=== PATIENT | female | born 1985 | race African-American/Black ===

== ENCOUNTER 2018-08-22 01:31 | Inpatient (IN) ==
[2018-08-22 02:40] LABS: UR AMPHETAMINES QUAL NONE DETECTED (NONE DETECT); UR BARBITUATES QUAL NONE DETECTED (NONE DETECT); UR BENZODIAZEPIN QUAL NONE DETECTED (NONE DETECT); UR CANNABINOIDS QUAL PRESUMPTIVE POSITIVE (NONE DETECT); UR COCAINE QUAL NONE DETECTED (NONE DETECT); UR METHADONE QUAL NONE DETECTED (NONE DETECT); UR METHAMPHETAMINE QUAL NONE DETECTED (NONE DETECT); UR OPIATES QUAL PRESUMPTIVE POSITIVE (NONE DETECT); UR OXYCODONE QUAL NONE DETECTED (NONE DETECT); UR PCP QUAL NONE DETECTED (NONE DETECT); UR PROPOXYPHENE QUAL NONE DETECTED (NONE DETECT); UR TCA QUAL NONE DETECTED (NONE DETECT)
[2018-08-22 02:41] LABS: BASO# 0.01 X1000 (0.0-0.2); BASO% 0.1 % (0.0-0.8); HEMATOCRIT 51.3 % (37.0-47.0); HEMOGLOBIN 18.1 g/dL (12.0-16.0); IMM GRAN# 0.02 X1000 (0.0-0.04); IMM GRAN% 0.2 % (0.0-0.5); LYMPH% 4.7 % (20.5-51.1); MCH 31.5 PG (27-31); MCHC 35.3 g/dL (33-37); MCV 89.2 FL (81-99); MONO% 7.1 % (1.7-9.3); MPV 8.8 FL (7.4-10.4); NEUT# 11.21 X1000 (1.4-6.5); NEUT% 87.9 % (42.2-75.2); PLT 370 X1000 (130-400); RBC 5.75 XMIL (4.2-5.4); RDW 13.1 % (11.5-14.5); WBC 12.74 X1000 (4.8-10.8)
[2018-08-22 03:11] LABS: BILIRUBIN URINE 1+ (NEGATIVE); CLARITY SLIGHTLY CLOUDY (CLEAR); COLOR AMBER; URINE BACTERIA 4+ /HFP; URINE EPITHELIAL CELLS <10 /HPF (<10); URINE RBC 20-40 /HPF (<10); URINE SOURCE CATH
[2018-08-22 03:12] LABS: BLOOD URINE 4+ (NEGATIVE); KETONE URINE 1+(Small) mg/dL (NEGATIVE); LEUKOCYTES URINE 1+ (NEGATIVE); NITRITE URINE NEGATIVE (NEGATIVE); UROBILINOGEN URINE 1 mg/dL
[2018-08-22 03:13] LABS: ALBUMIN 6.9 g/dL (3.5-5.0); CALCIUM 10.7 mg/dL (8.8-10.2); CREATININE 4.9 mg/dL (0.5-0.9); POTASSIUM 4.6 mmol/L (3.5-5.1); TOTAL BILIRUBIN 0.5 mg/dL (0.20-1.00)
[2018-08-22 03:36] LABS: CK INDEX 0.5 (0.0-2.5); CK-MB 3.79 ng/mL (0.0-5.0)
[2018-08-22] MEDS ORDERED: NS 1,000 ML IV ONE ×2 (03:45→06:00)
[2018-08-22] MEDS ORDERED: ZOFRAN IV ONE (03:45)
--- NOTE | 2018-08-22 06:19 | PROVIDER DOCUMENTATION ---
This chart was entered by Pauly Liu Scribe, acting as scribe for Aurora Sheehan MD. HPI-General Adult - General Chief Complaint: N/V/D Stated Complaint: N/V WITH ABD PAIN Time Seen by Provider: 08/22/18 01:33 Source: patient Allergies/Adverse Reactions: Patient Allergies Allergy/AdvReac Type Severity Reaction Status Date / Time No Known Allergies Allergy Verified 07/19/17 08:34 Home Medications: Home Medication List Medication Instructions Recorded Confirmed Last Taken Type Hydrocodone/Acetaminophen [[place] 1 tab PO BID 03/12/16 07/16/17 07/13/17 History 7.5-325 Tablet] Clonazepam 1 tab PO HS 07/14/17 07/16/17 07/13/17 History Promethazine [Phenergan] 25 mg PO Q6H PRN PRN #20 tab 07/14/17 07/16/17 Unknown Rx Promethazine [Phenergan] 25 mg PO Q6H PRN PRN #20 tab 07/16/17 Unknown Rx Promethazine [Phenergan] 25 mg ID Q6H PRN PRN #20 supp 07/16/17 Unknown Rx Metoclopramide HCl [Reglan] 5 mg PO Q6HR PRN #12 tab 07/19/17 Unknown Rx Omeprazole [Prilosec] 20 mg PO DAILY #21 cap 07/19/17 Unknown Rx - History of Present Illness -Gen Adult Nature of Presenting Problems: 33 yof c/o pt arrived ems. pt states she's had cp, abd pain and vomiting for 4 days. pt states she smoked marijuana, took norcos and ambien as needed when pain started. pt is a smoker and drinks alcohol. ems states pt acting erratic and they had trouble getting her downstairs to ambulance. Review of Systems - Adult - REVIEW OF SYSTEMS - ADULT Constitutional: reports: no symptoms reported Eyes: reports: no symptoms reported Ears, Nose, Mouth & Throat: reports: no symptoms reported Cardiovascular: reports: see HPI, chest pain. denies: heart murmur, irregular heart rate, orthopnea Respiratory: reports: no symptoms reported Gastrointestinal: reports: see HPI, abdominal pain, vomiting. denies: diarrhea, difficulty swallowing, nausea, rectal bleeding Genitourinary: reports: no symptoms reported Musculoskeletal: reports: no symptoms reported Integumentary: reports: no symptoms reported Neurological: reports: no symptoms reported. denies: dizziness/vertigo, headache/migraines, loss of balance, numbness Psychiatric: reports: see HPI, other (pt took ambien, norcos and smoked marijuana as needed for pain.). denies: depression, emotional problems, insomnia, panic attacks Endocrine: reports: no symptoms reported Hematologic/Lymphatic: reports: no symptoms reported Allergic/Immunologic: reports: no symptoms reported All Other Systems: Reviewed and Negative Past History - Adult - PAST MEDICAL HISTORY-ADULT Review of Records: reports: Old Records Reviewed, Nursing Assessment Review, Medications Reviewed, Social history reviewed & non-contributory. Major Childhood Illnesses: reports: denies history Cardiovascular: reports: denies history Respiratory: reports: denies history Gastrointestinal: reports: denies history Obstetrical/Gynecological: reports: denies history Genitourinary: reports: denies history Musculoskeletal: reports: chronic pain, intervertebral disc disease Neurological: reports: denies history Endocrine/Immune: reports: denies history Other Conditions: reports: denies history - PRIOR SURGERIES/PROCEDURES Surgical/Procedure History: reports: reviewed, not pertinent - PRIOR HOSPITALIZATIONS Prior Hospitalizations: reports: other - IMMUNIZATION STATUS Childhood Immunizations: UTD Flu Vaccine: See Nurse Assessment - FAMILY HISTORY Family History: reviewed, not pertinent - SOCIAL HISTORY Smoking: cigarettes, greater than 1 pack/day Provider spent 3-5 mins advising pt. on dangers of tobacco.: Discussed manners to quit use, and f/u contacts for add'l counseling. Substance Use: alcohol, marijuana Alcohol Use Frequency: every day Physical Exam-General - PHYSICAL EXAM-ADULT Initial Vital Signs Reviewed: Yes - CONSTITUTIONAL General Appearance: alert, mild distress, thin, anxious, other (pt acting very erratic, moving around making it difficult to do exam.). negative: cachetic, slow to respond, obtunded, combative - EYES Eyes: PERRL/EOMI, pink conjunctivae - HEAD, EARS, NOSE, MOUTH & THROAT HENMT: normocephalic/atraumatic, moist mucous membranes, normal ENT inspection - NECK Neck: non-tender, full range of motion, supple, normal inspection - RESPIRATORY Respiratory: chest non-tender, lungs clear, normal breath sounds - CARDIOVASCULAR Cardiovascular: normal peripheral pulses, regular rate, rhythm, no edema, no gallop, no JVD, no murmur. negative: JVD, bradycardia, tachycardia, irregularly irregular, PMI displaced laterally - GASTROINTESTINAL (ABDOMEN) Abdominal Exam: normal bowel sounds, soft, no organomegaly, no pulsatile mass, tenderness (generalized abd). 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 negative: normal mood/affect, normal thought content, normal thought process, oriented x 3, depressed affect, tearful Progress - PLAN OF CARE/RESULTS Progress/Plan/Lab Results: Vital Signs - 8 hr 08/22/18 01:35 Temperature 99.7 F H Pulse Rate 146 H Respiratory Rate 22 Blood Pressure 133/91 O2 Sat by Pulse Oximetry 95 labs and imaging reviewed. Pt has acute renal failure. CT abd and pelvis is negative. Pt was started on IVF's and she ripped her line so it was held. d/w Dr Page, will admit for further management. Result Diagrams: 08/22/18 02:01 08/22/18 02:01 - CONSULTS/PCP/HOSPITALIST Notification #1 *Consult/PCP/Hospitalist*: Dr Page [facility] Time Discussed: 05:05 Consult Disposition: Admit Departure - Departure Date of Disposition Decision: 08/22/18 Time of Disposition Decision: 05:10 DIAGNOSIS: Acute renal failure, Hypernatremia, Abdominal pain Disposition: ADMITTED INPATIENT 09 Certified Medical Emergency: Emergent Condition: Stable Referrals and Follow-Ups: None,PCP [Primary Care Provider] - - Critical Care Note This patient required my direct & personal management of CC.: No Attestation - Physician/ CHE Attestation Patient care was provided by Advanced Practice Provider:: No The physician spent face to face time with patient:: Yes Advanced Practice Provider documentation review:: Supervising physician onsite and consulted in the evaluation and care of this patient. The physician did have a face to face encounter with the patient. This chart was documented by the indicated scribe, (Pauly Liu Scribe) and accurately reflects the services I performed and decisions made by me, Aurora Sheehan MD, as attested by the provider's signature.
[2018-08-22] MEDS ORDERED: G.I. COCKTAIL PO ONE ×2 (08:12→14:29)
[2018-08-22] MEDS ORDERED: NS 2,000 ML IV ONE (08:21)
[2018-08-22] MEDS ORDERED: SODIUM CHLORIDE 0.9% INJ SCH ×2 (08:30→16:00)
[2018-08-22] MEDS ORDERED: PROTONIX IV SCH (08:30)
[2018-08-22] MEDS: ZOFRAN IV PRN ×3 (08:47→19:21)
[2018-08-22] MEDS: MYCELEX TROCHE PO SCH ×5 (08:48→20:50)
[2018-08-22 09:08] LABS: HEMATOCRIT 47.5 % (37.0-47.0); MCH 31.8 PG (27-31); MCHC 35.8 g/dL (33-37); RBC 5.34 XMIL (4.2-5.4); RDW 12.9 % (11.5-14.5); WBC 16.7 X1000 (4.8-10.8)
--- NOTE | 2018-08-22 09:09 | Diag Imaging Result Doc PS360 ---
EXAM: CT ABDOMEN/PELVIS W/O CONTRAST HISTORY: abd pain and hematuria TECHNIQUE: Routine stone search CT without contrast. COMPARISON: 07/16/2017 FINDINGS: Pulmonary interpretation was given by [facility] tel[facility]. Small hepatic and right renal cysts are unchanged. No calcified gallstones. There are splenic granulomata. The remaining unenhanced solid visceral organs are unremarkable. No hydronephrosis or urolithiasis. No evidence for appendicitis. No bowel distention or free air. There is a an unusually large amount air within the urinary bladder. Correlate clinically for recent instrumentation. There is a small amount of free fluid within the pelvis. IMPRESSION: Large amount of air in the urinary bladder. Correlate clinically for recent instrumentation. No urolithiasis or hydronephrosis. This exam was performed using automated exposure control, adjustment of mA or kV according to patient size, and/or use of iterative reconstruction technique. Electronically signed by Susan Parnell 08/22/2018 9:07 AM
[2018-08-22 09:15] LABS: MAGNESIUM 2.8 mg/dL (1.5-2.7); PHOSPHORUS 7.8 mg/dL (2.7-4.5)
[2018-08-22 09:27] LABS: ALBUMIN 5.3 g/dL (3.5-5.0); CALCIUM 9.4 mg/dL (8.8-10.2); CREATININE 5.3 mg/dL (0.5-0.9); POTASSIUM 4.6 mmol/L (3.5-5.1); TOTAL BILIRUBIN 0.6 mg/dL (0.20-1.00); TOTAL PROTEIN 9.4 g/dL (6.3-8.3)
[2018-08-22 09:28] LABS: INR 1.01; PROTIME 13.8 Seconds (11.0-16.0)
[2018-08-22 09:29] LABS: PTT 29.5 Seconds (22.3-41.8)
--- NOTE | 2018-08-22 09:45 | EKG Report ---
Test Performed on : 08/22/2018 08:15:40 AM Test Reason : Chest pain Blood Pressure : / mmHG Vent. Rate : 130 BPM Atrial Rate : 130 BPM P-R Int : 122 ms QRS Dur : 078 ms QT Int : 302 ms P-R-T Axes : 081 071 075 degrees QTc Int : 444 ms Sinus tachycardia. Otherwise normal ECG When compared with ECG of 14-JUL-2017 12:39, Vent. rate has increased BY 69 BPM Non-specific change in ST segment in Inferior leads Unconfirmed Result
[2018-08-22] MEDS ORDERED: M.V.I.-12 10 ML, FOLIC ACID 1 MG, MAGNESIUM SULFATE 1 GM, THIAMINE 100 MG in NS 1,000 ML IV SCH (10:00)
[2018-08-22] MEDS ORDERED: THIAMINE IV SCH (10:00)
[2018-08-22] MEDS ORDERED: FOLIC ACID IV SCH (10:00)
[2018-08-22] MEDS ORDERED: NS IV SCH (10:00)
[2018-08-22] MEDS ORDERED: M V I IV SCH (10:00)
--- NOTE | 2018-08-22 10:23 | Diag Imaging Result Doc PS360 ---
EXAM: CHEST-PORTABLE HISTORY: Sepsis Protocol TECHNIQUE: Single view of the chest was performed portably. COMPARISON: 07/19/2017 FINDINGS: The cardiomediastinal silhouette is within normal limits. The pulmonary vasculature is not congested. No infiltrate, effusion, or pneumothorax is appreciated. IMPRESSION: No acute cardiopulmonary abnormality is identified. Electronically signed by Susan Parnell 08/22/2018 10:20 AM
[2018-08-22 11:49] LABS: BILIRUBIN URINE NEGATIVE (NEGATIVE); BLOOD URINE 4+ (NEGATIVE); CLARITY SL. CLOUDY (CLEAR); COLOR YELLOW; KETONE URINE 1+(Small) mg/dL (NEGATIVE); LEUKOCYTES URINE TRACE (NEGATIVE); NITRITE URINE NEGATIVE (NEGATIVE); PROTEIN URINE 2+(100 mg/dL) mg/dL (NEGATIVE); SP GRAVITY URINE 1.025; UROBILINOGEN URINE NORMAL
[2018-08-22 11:50] LABS: URINE EPITHELIAL CELLS <10 /HPF (<10); URINE RBC TNTC /HPF (<10); URINE SOURCE CATH; URINE WBC <10 /HPF (<10)
[2018-08-22] MEDS: CARAFATE PO SCH ×2 (11:51→15:47)
[2018-08-22 11:53] LABS: UR PROT RANDOM 149.7 mg/dL
[2018-08-22 11:55] LABS: UR CREAT RANDOM 342.7 mg/dL (11-20)
--- NOTE | 2018-08-22 11:56 | Diag Imaging Result Doc PS360 ---
EXAM: US RENAL 2 (RETROPER) COMPLETE 08/22/2018 HISTORY: MARQUES TECHNIQUE: Renal ultrasound COMMENT: The kidneys are slightly hyperechoic. There is no evidence of hydronephrosis. There is a 1.6 cm cyst in the right kidney. The urinary bladder is not visible. The right kidney is 10.1 x 5.5 x 4.3 cm the left is 11.4 x 4.5 x 4.8 cm. IMPRESSION: No evidence of obstructive uropathy. The possibility of medical renal disease cannot be excluded. Electronically signed by Aman Corea 08/22/2018 11:54 AM
[2018-08-22] MEDS ORDERED: NS 1,000 ML IV SCH ×2 (12:15→18:14)
[2018-08-22] MEDS ORDERED: MORPHINE IV ONE (14:29)
[2018-08-22 15:16] LABS: ALBUMIN 4.4 g/dL (3.5-5.0); CREATININE 3.3 mg/dL (0.5-0.9); POTASSIUM 4.4 mmol/L (3.5-5.1)
[2018-08-22] MEDS: PROTONIX 80 MG in NS 80 ML IV SCH (16:08)
[2018-08-22] MEDS: SODIUM BICARBONATE 8.4% 150 MEQ in D5W 1,000 ML IV SCH (18:41)
[2018-08-22 19:06] LABS: ALBUMIN 4.5 g/dL (3.5-5.0); CALCIUM 8.2 mg/dL (8.8-10.2); CREATININE 2.5 mg/dL (0.5-0.9); PHOSPHORUS 4.2 mg/dL (2.7-4.5); POTASSIUM 4.7 mmol/L (3.5-5.1)
--- NOTE | 2018-08-22 19:15 | HISTORY AND PHYSICAL ---
CHIEF COMPLAINT: Abdominal pain, nausea, vomiting. HISTORY OF PRESENT ILLNESS: This is a 33-year-old female who presented to the emergency room complaining of 4 days of abdominal pain and vomiting. She denies a prior history. She states that she had a sudden onset that started and just has grown into intensity over the last 4 days. She states that she smoked marijuana, took her scheduled [place] and Ambien although has not relieved the pain. She does drink. She drinks at least 2 shots a day and she did drink up until yesterday sometime. Getting history from the patient is quite difficult. She is noted to have a blood pressure of 149/96, with a heart rate ranging 100 to 120, respirations are 18 to 20, temperature is 97.8, room air saturations are 98 to 100 about 24 hours prior to presenting to the emergency room. CT scan of the abdomen and pelvis without contrast was performed which revealed hepatic and renal cyst and an unusually large amount of air within the bladder. She was found to be in acute renal failure having a creatinine of 4.9. She was given IV hydration, as well as Zofran and admitted for further evaluation and treatment. PAST MEDICAL HISTORY: She denies. PAST SURGICAL HISTORY: Tonsillectomy. SOCIAL HISTORY: She smokes about a pack a day. She drinks at least 2 shots of alcohol a day and she does smoke marijuana weekly, more often socially. HOME MEDICATIONS: Ambien 10 mg p.o. at bedtime. Rincon 7.5 b.i.d. REVIEW OF SYSTEMS: Discussed with patient with pertinent positives stated in the HPI. She denied any syncope, dizziness, any palpitations, any diarrhea, constipation, black or bloody vomitus or stools, any shortness of breath, cough, fever, chills, night sweats; any hematuria, dysuria, frequency, urgency. PHYSICAL EXAMINATION: GENERAL: This is a 33-year-old female who is lying in the bed, restless and agitated. VITAL SIGNS: Blood pressure 133/87 with a heart rate of 110, respirations are 18, temperature is 97.9 oral with room air saturations 95-98%. HEENT: Eyes: Pupils are equal, round, react to light. EOMs are intact. Sclerae are anicteric. Head is normocephalic, atraumatic. Mucous membranes are dry. Tongue is coated. NECK: Supple with trachea midline. CARDIOVASCULAR: Regular rate and rhythm. She is tachycardic. S1 and S2 are appreciated. She has no lower extremity edema. No murmur. Peripheral pulses are palpable x4 extremities. PULMONARY: Breath sounds are clear with no increased work of breathing noted. Chest rise and fall symmetrically with respiration. GASTROINTESTINAL: Abdomen is soft. She has generalized tenderness, especially epigastric to right upper quadrant. Bowel sounds are noted in all 4 quadrants. NEUROLOGIC: She is alert. She is anxious. SKIN: Warm and dry with poor turgor. LABS: WBC is 12.7 with hemoglobin 18.1, hematocrit 51.3, and platelets of 370. Sodium is 158, potassium 4.6, BUN 53, creatinine 4.9 with a glucose of 184. AST is 33, ALT 41. She does have a CPK of 733. Blood cultures and urine cultures are pending. 1. Chest x-ray reveals no acute cardiopulmonary abnormality identified. 2. CT of the abdomen and pelvis reveals a large amount of air in the urinary bladder. Clinically correlate for recent instrumentation. No urolithiasis or hydronephrosis. ASSESSMENT AND PLAN: 1. Dehydration. 2. Acute kidney injury secondary to #1. 3. Rhabdomyolysis. 4. Leukocytosis. 5. Electrolyte imbalance with hypernatremia. 6. Hypernatremia. 7. Elevated liver function tests. PLAN: The patient is currently on medical-surgical floor. We will transfer her to ICU for close monitoring. She is profoundly dehydrated. We will give a 3 L bolus. As the patient does have a history of daily alcohol use, we will hang a banana bag as 1 of our liters. We will recheck a renal profile every 4 hours. We will recheck CPK. Will try a GI cocktail for pain. We will give Protonix 40 mg IV q.12 hours. We will check a renal ultrasound. Obtain urine electrolytes. We will check a Mag and phosphorus. We will monitor for any signs of alcohol withdrawal. We will start Carafate a.c. and at bedtime. As her mouth is coated, we will start Mycelex troches. Further treatments pending hospital course. Dictated by WILIAM Shen for Robbie Page MD cc: WILIAM Shen MD
[2018-08-22] MEDS: CARAFATE LIQUID PO SCH (19:20)
[2018-08-22] MEDS: NORCO-7.5 PO PRN (20:50)
[2018-08-22] MEDS: D5 1/2 NS 1,000 ML IV SCH (20:53)
[2018-08-22 22:46] LABS: ALBUMIN 4.2 g/dL (3.5-5.0); CREATININE 1.8 mg/dL (0.5-0.9); PHOSPHORUS 3.6 mg/dL (2.7-4.5); POTASSIUM 4.6 mmol/L (3.5-5.1)
--- NOTE | 2018-08-23 01:24 | HISTORY AND PHYSICAL ---
ADDENDUM: Patient seen and examined by myself. Full note dictated and discussed with nurse practitioner. The patient has been having coffee-grounds emesis with nausea, vomiting, abdominal pain. States she has been smoking marijuana. We will admit her to the hospital. Currently, there is no bed at [facility]. She is in acute renal failure and rhabdomyolysis. We will place her on IV fluids, a Protonix drip, and will follow. cc: Robbie Page MD
[2018-08-23] MEDS: PROTONIX 80 MG in NS 80 ML IV SCH ×3 (01:26→21:32)
[2018-08-23] MEDS: DILAUDID IV PRN ×4 (01:37→20:08)
[2018-08-23] MEDS: CARAFATE LIQUID PO SCH ×6 (02:00→20:09)
[2018-08-23 08:42] LABS: CALCIUM 8.1 mg/dL (8.8-10.2); CREATININE 1.1 mg/dL (0.5-0.9); MAGNESIUM 3.1 mg/dL (1.5-2.7); POTASSIUM 4.8 mmol/L (3.5-5.1); TOTAL BILIRUBIN 0.5 mg/dL (0.20-1.00); TOTAL PROTEIN 6.8 g/dL (6.3-8.3)
[2018-08-23] MEDS ORDERED: DIFLUCAN PO SCH (09:00)
--- NOTE | 2018-08-23 09:02 | EKG Report ---
Test Performed on : 08/22/2018 2:21:43 PM Test Reason : ER Blood Pressure : / mmHG Vent. Rate : 072 BPM Atrial Rate : 072 BPM P-R Int : 110 ms QRS Dur : 090 ms QT Int : 370 ms P-R-T Axes : 090 083 081 degrees QTc Int : 405 ms Sinus rhythm. with sinus arrhythmia. with short MN Otherwise normal ECG When compared with ECG of 22-AUG-2018 08:15, (Unconfirmed) Vent. rate has decreased BY 58 BPM Unconfirmed Result
[2018-08-23] MEDS: MYCELEX TROCHE PO SCH ×5 (09:30→21:31)
[2018-08-23] MEDS: SODIUM BICARBONATE 8.4% 150 MEQ in D5W 1,000 ML IV SCH (09:31)
[2018-08-23 09:37] LABS: HEMATOCRIT 38.6 % (37.0-47.0); HEMOGLOBIN 13.3 g/dL (12.0-16.0); MCH 31.8 PG (27-31); MCHC 34.5 g/dL (33-37); MCV 92.3 FL (81-99); MPV 8.9 FL (7.4-10.4); RBC 4.18 XMIL (4.2-5.4); RDW 13.3 % (11.5-14.5); WBC 17.1 X1000 (4.8-10.8)
[2018-08-23] MEDS: D5 1/2 NS 1,000 ML IV SCH (10:01)
[2018-08-23] MEDS: PHENERGAN IV PRN ×3 (10:12→20:17)
[2018-08-23] MEDS ORDERED: D5W 1,000 ML IV SCH ×2 (12:30→21:15)
[2018-08-23 12:36] LABS: HEMOGLOBIN A1C 5.3 % (4.8-6.0)
[2018-08-23] MEDS ORDERED: DIFLUCAN 200 MG/NS 100 ML IV SCH (12:45)
[2018-08-23] MEDS: SODIUM CHLORIDE 0.9% INJ PRN (14:40)
[2018-08-23] MEDS ORDERED: HUMALOG (PARKWAY) SUBQ SCH (16:00)
[2018-08-23 20:48] LABS: ESTIMATED GFR > 60
[2018-08-23 20:55] LABS: AGAP 9; BUN 27 mg/dL (8-22); CHLORIDE 123 mmol/L (98-107); COSMO 324; GLUCOSE 140 mg/dL (70-104); POTASSIUM 4.8 mmol/L (3.5-5.1); SODIUM 160 mmol/L (136-145); TCO2 28 mmol/L (25-35)
[2018-08-23] MEDS: HUMALOG SUBQ SCH (21:06)
[2018-08-23] MEDS ORDERED: SODIUM BICARBONATE 8.4% 150 MEQ in D5W 1,000 ML IV SCH (22:00)
[2018-08-23 23:27] LABS: AGAP 6; BUN 24 mg/dL (8-22); CALCIUM 8.4 mg/dL (8.8-10.2); CHLORIDE 117 mmol/L (98-107); COSMO 314; CREATININE 0.9 mg/dL (0.5-0.9); ESTIMATED GFR > 60; GLUCOSE 143 mg/dL (70-104); POTASSIUM 4.8 mmol/L (3.5-5.1); SODIUM 155 mmol/L (136-145); TCO2 32 mmol/L (25-35)
--- NOTE | 2018-08-23 23:27 | PROGRESS NOTE ---
DATE: 08/23/2018 SUBJECTIVE: The patient notes she is still having lots of throat pain, difficulty swallowing, but does note that she actually feels some moisture in her mouth now, which is apparently a new finding. OBJECTIVE: Vital signs reviewed. She is awake, alert. She is in no respiratory distress but is somewhat ill-appearing. HEENT: Normocephalic. Neck supple. CV: Regular rate. Chest clear, nonlabored. Abdomen soft, nondistended. Extremities: Moves all extremities. ASSESSMENT AND PLAN: 1. Dehydration, appears improved. 2. Acute kidney injury, continues to improve. 3. Rhabdomyolysis, stable. 4. Leukocytosis, stable. 5. Hypernatremia. Sodium remains 160. We will continue with D5 half normal as well as sodium bicarbonate. 6. Presumed candidal esophagitis. We will continue Diflucan. Continue to encourage p.o. We will transfer the patient to [facility] for an esophagogastroduodenoscopy as well as Oncology. cc: Robbie Page MD
[2018-08-24] MEDS: PHENERGAN IV PRN ×3 (02:29→19:30)
[2018-08-24] MEDS: DILAUDID IV PRN ×4 (02:29→22:12)
[2018-08-24] MEDS: SODIUM CHLORIDE 0.9% INJ PRN ×2 (02:29→06:58)
[2018-08-24] MEDS: CARAFATE LIQUID PO SCH ×4 (02:30→19:55)
[2018-08-24] MEDS ORDERED: D5W 1,000 ML IV SCH ×3 (03:25→06:36)
[2018-08-24 05:52] LABS: BASO# 0.01 X1000 (0.0-0.2); BASO% 0.1 % (0.0-0.8); EOS# 0.04 X1000 (0.0-0.7); EOS% 0.4 % (0.0-10.0); HEMATOCRIT 38.1 % (37.0-47.0); HEMOGLOBIN 12.6 g/dL (12.0-16.0); IMM GRAN# 0.03 X1000 (0.0-0.04); IMM GRAN% 0.3 % (0.0-0.5); LYMPH# 1.24 X1000 (1.2-3.4); LYMPH% 12.3 % (20.5-51.1); MCH 31.7 PG (27-31); MCHC 33.1 g/dL (33-37); MCV 95.7 FL (81-99); MONO# 0.46 X1000 (0.11-0.59); MONO% 4.5 % (1.7-9.3); MPV 9.5 FL (7.4-10.4); NEUT# 8.34 X1000 (1.4-6.5); NEUT% 82.4 % (42.2-75.2); PLT 172 X1000 (130-400); RBC 3.98 XMIL (4.2-5.4); RDW 13.3 % (11.5-14.5); WBC 10.12 X1000 (4.8-10.8)
[2018-08-24 06:19] LABS: AGAP 6; ALB/GLOB RATIO 1.4; ALBUMIN 3.6 g/dL (3.5-5.0); ALKALINE PHOSPHATASE 39 U/L (32-104); BUN 20 mg/dL (8-22); CALCIUM 8.6 mg/dL (8.8-10.2); CHLORIDE 116 mmol/L (98-107); COSMO 304; CREATININE 0.9 mg/dL (0.5-0.9); ESTIMATED GFR > 60; GLUCOSE 152 mg/dL (70-104); GOT 47 U/L (10-30); GPT 32 U/L (10-36); MAGNESIUM 2.7 mg/dL (1.5-2.7); POTASSIUM 4.6 mmol/L (3.5-5.1); SODIUM 150 mmol/L (136-145); TCO2 28 mmol/L (25-35); TOTAL BILIRUBIN 0.57 mg/dL (0.20-1.00); TOTAL PROTEIN 6.1 g/dL (6.3-8.3)
[2018-08-24] MEDS: HUMALOG SUBQ SCH ×4 (06:40→21:12)
[2018-08-24] MEDS: PROTONIX 80 MG in NS 80 ML IV SCH ×2 (06:59→16:57)
[2018-08-24] MEDS ORDERED: NS 1,000 ML IV SCH (08:15)
[2018-08-24] MEDS: MYCELEX TROCHE PO SCH ×6 (08:23→21:54)
--- NOTE | 2018-08-24 09:10 | PROGRESS NOTE ---
DATE: 08/24/2018 SUBJECTIVE: The patient seems to be doing a little bit better but she is still complaining of abdominal pain, nausea and vomiting. She just received pain medication for her abdominal pain and nausea medication as well. Her sodium level is better, but it looks like decreased around 10 point in less than 12 hours, so I will stop the D5W and I will put this patient on normal saline at a low rate. Her kidney function improved. The CK level is trending down. I will continue to monitor. OBJECTIVE: Vital Signs: Temperature 98.3 degrees, pulse 57, respiratory rate 18, blood pressure 133/98. Oxygen saturation 100% on room air. HEENT: Head normocephalic, no trauma, PERRLA. Neck: Supple. No JVD. No masses. Central trachea. Chest: Clear to auscultation. Some crepitus at the bases. Abdomen: Soft generalized tenderness to palpation especially at the level of the periumbilical area and epigastric area. Extremities: No edema, no clubbing, no cyanosis. Neurological: The patient is alert. She is oriented x3. No focal neurological deficits. LABORATORY: WBC 10.1, hemoglobin 12.6, hematocrit 38.1, platelets 172,000 sodium 150, potassium 4.6, chloride 116, bicarbonate 28, BUN 20, creatinine 0.9, glucose 152, calcium 8.6, magnesium 2.7 , AST 47, ALT 32 alkaline phosphatase 39. CK 1872 albumin is 3.6. ASSESSMENT AND PLAN: 1. Intractable nausea, vomiting, abdominal pain. This patient has been having now severe nausea, vomiting and abdominal pain for the past 5 to 6 days. She has been able to keep anything down. She was admitted with severe dehydration and apparently she has been having coffee- grounds emesis. Gastroenterology Department has been consulted. Probably this patient has severe gastritis versus esophagitis. 2. Upper GI bleed. This patient has been having coffee ground emesis. Gastroenterology Department has been consulted. We will continue to monitor. 3. Hypernatremia, the sodium level decreased from 160 to 150 in less than 12 hours, I will stop the D5W and I will put this patient on normal saline at a low rate. I will recheck the blood sodium every 4 hours. 4. Rhabdomyolysis, CK level is trending down. We will continue to monitor and IV fluids. 5. Acute kidney injury, resolved. 6. Leukocytosis, resolved. 7. Drug abuse. It looks like this patient has been doing marijuana. As per the patient she does that occasionally. She has been highly advised against drug use. I will continue with daily cessation education. 8. Tobacco abuse. Also this patient has been highly advised against tobacco use. I will continue with daily cessation education as well. cc: Beto Chery MD
[2018-08-24] MEDS ORDERED: ROBINUL ONE (10:11)
[2018-08-24] MEDS ORDERED: XYLOCAINE-MPF 2% ONE (10:11)
[2018-08-24] MEDS ORDERED: FENTANYL ONE (10:12)
[2018-08-24] MEDS ORDERED: DIPRIVAN 1% ONE (10:12)
[2018-08-24] MEDS ORDERED: ZOFRAN ONE (10:14)
[2018-08-24] MEDS ORDERED: DIFLUCAN 200 MG/NS 100 ML IV SCH (12:00)
--- NOTE | 2018-08-24 12:46 | OPERATIVE NOTE ---
PROCEDURE DATE : 08/24/2018 EXAM: Upper gastrointestinal endoscopy. PROVIDER: Villa Valadez MD INDICATION: Intractable nausea and vomiting, coffee-ground emesis. MEDICATIONS: Monitored anesthesia care. DESCRIPTION OF PROCEDURE: Prior to the procedure, history and physical was performed. The patient's medications and allergies were reviewed. The patient's tolerance to previous anesthesia was also reviewed. The risks and benefits of the procedure and sedation options and risks were discussed with the patient. All questions were answered, and informed consent was obtained. After reviewing the risks and benefits, the patient was deemed in satisfactory condition to undergo the procedure. Then a scope was passed under direct visualization. Throughout the procedure, the patient's blood pressure, pulse and oxygen saturation were monitored continuously. The endoscope was introduced in the mouth and advanced to the second portion of the duodenum. The upper GI endoscopy was accomplished without difficulty. The patient tolerated the procedure well. COMPLICATIONS: No immediate complications. ESTIMATED BLOOD LOSS: Minimal. FINDINGS: The esophagus was normal. Z line was regular at 38 cm from the incisors. Stomach showed diffuse moderate gastritis. Random gastric biopsies were obtained to rule out H. pylori. Retroflexion in the stomach was normal. The duodenal bulb and second portion were also normal. IMPRESSION: - Gastritis, biopsied. - Otherwise, exam was normal. - No etiology of the patient's nausea and vomiting was found on EGD. Cyclic vomiting syndrome suspected RECOMMENDATIONS: - Await pathology results. - Clear liquid diet as tolerated. - Continue PPI twice daily. - Continue antiemetics as needed. 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 Please call with any questions or concerns. MTDD
--- NOTE | 2018-08-24 14:21 | GASTROENTEROLOGY CONSULTATION ---
DATE: 08/24/2018 REASON FOR CONSULTATION: Intractable nausea and vomiting, coffee-ground emesis, abdominal pain. HISTORY OF PRESENT ILLNESS: Ms. Marla Bolton is a 33-year-old woman with past medical history of chronic back pain, alcoholism, marijuana abuse, who presents with 4 days of intractable nausea and vomiting that progressed to coffee-ground emesis. The patient reports that her symptoms started with headache for which she took some Advil once. She subsequently developed intractable nausea and vomiting with dry heaves that was nonbloody and nonbilious multiple times a day. Over the last couple of days, she has noticed some dark black coffee grounds in her emesis as well as severe, diffuse abdominal pain. She does drink alcohol about 2 shots of alcohol a day as well as a few beers per week. She also smokes marijuana regularly. She says she had a similar episode about a year ago that resolve spontaneously. She has never had an EGD or colonoscopy in the past and denies any history of reflux disease. She was initially admitted at [facility] where she had a CT done there that showed hepatic and renal cysts and a large amount of air in the urinary bladder. Otherwise, no evidence of bowel obstruction or pancreatitis. Her labs at the outside hospital was notable for leukocytosis of 16.7. Heme concentration with a hemoglobin of 17.0, severe volume depletion with sodium of 162, creatinine of 5.3 and came down to 1.8 with resuscitation, and a CK of 2234. Lactate was normal at the time. While at the outside hospital, she continued to complain of nausea, vomiting and coffee ground emesis. Today, she is complaining of waves of nausea, particularly with movement and has been having some emesis with clear fluid; primarily dry heaving. She also complains of chest pain and shortness of breath. REVIEW OF SYSTEMS: As per HPI, otherwise 12 point review of systems is negative. PAST MEDICAL HISTORY: Chronic back pain, insomnia, ETOH abuse, marijuana abuse SOCIAL HISTORY: She drinks alcohol regularly. She is a half a pack per day smoker. She smokes marijuana regularly. FAMILY HISTORY: No family history of GI diseases or malignancies. MEDICATIONS: She takes [place] and Ambien, Advil as needed, rarely. ALLERGIES: No allergies to medications. PHYSICAL EXAMINATION: Vital Signs: Temperature is 97.9 degrees, heart rate is 75, respiratory rate 17, blood pressure 133/98, O2 saturation 100% on room air. General: The patient is awake, alert, in mild acute distress, appears uncomfortable, writhing in the bed. She says it is from her nausea and chest pain. HEENT: Sclerae anicteric. Moist mucous membranes. Extraocular motor intact. Neck: Supple. No JVD. No lymphadenopathy. Chest: She has hypertrophy of the pectoralis muscles bilaterally. Cardiac: Regular rate and rhythm. No murmurs. Lungs: Clear to auscultation bilaterally. Abdomen: Nondistended. No surgical scars. Bowel sounds are present. Diffuse tenderness to palpation. No rebound or guarding. Extremities: No clubbing, cyanosis, or edema. Skin: She does have some notable hirsutism with increased facial hair. Skin is warm and well perfused. Mildly diaphoretic. Gynecologic: Per report, patient is on her menses. LABORATORY DATA: White count is 10.12 from 16.7 on admission. Hemoglobin is 12.6 from 17.0 on admission, platelets of 172,000. INR is 1.01. Sodium is 150 from 162 on admission, potassium 4.6, chloride is 116, bicarbonate 28, BUN 20, creatinine 0.9 from 5.3 on admission. Glucose is 152, calcium is 8.6, phosphorus 3.6, magnesium of 2.7, total bilirubin 0.57, AST is 47, ALT is 32. CK is 1872 from 3068 on admission, total protein 6.1, albumin is 2.6. UA on 08/22 showed proteinuria, increased ketones, trace white blood cell count. Urine toxicology positive for opiates and cannabinoids. Alcohol level was negative. Blood cultures x2 no growth to date. Urine culture is negative. IMAGING: CT abdomen and pelvis without contrast on 08/01 show a large amount of air in the urinary bladder. Small hepatic and right renal cysts that are unchanged from prior. Otherwise, no other luminal findings. Chest x-ray was normal. Renal ultrasound shows no evidence of obstructive uropathy. ASSESSMENT AND PLAN: Marla Bolton is a 33-year-old woman who presents with acute episode of intractable nausea, vomiting with coffee ground emesis, abdominal pain, found to have acute kidney injury in the setting of volume depletion. Other notable findings includes hypernatremia, heme concentration and rhabdomyolysis. Her rhabdomyolysis, renal function, hypernatremia have improved with fluid resuscitation. However, she continues to complain of pain and intractable nausea and vomiting. The differential of her nausea and vomiting includes MWT, esophagitis, gastroparesis, cyclic vomiting syndrome, peptic ulcer disease, duodenitis, gastritis. She is n.p.o. and currently on PPI twice a day. We will plan for diagnostic EGD today. She is also on Carafate, Phenergan, and zofran as needed. Other issues include alcoholism, marijuana abuse, and chronic pain. Thank you for this consult. We will follow with you. Please call with any questions or concerns. [facility] HEALTHJohn
[2018-08-24] MEDS: ZOFRAN IV PRN (16:54)
[2018-08-24] MEDS: D5W 1,000 ML IV SCH (17:42)
[2018-08-24] MEDS: NORCO-7.5 PO PRN (19:55)
[2018-08-25] MEDS: CARAFATE LIQUID PO SCH ×4 (01:39→19:37)
[2018-08-25] MEDS: PROTONIX 80 MG in NS 80 ML IV SCH ×2 (03:12→13:12)
[2018-08-25] MEDS: D5W 1,000 ML IV SCH (06:07)
[2018-08-25 06:19] LABS: BASO# 0.01 X1000 (0.0-0.2); BASO% 0.2 % (0.0-0.8); EOS# 0.11 X1000 (0.0-0.7); EOS% 1.7 % (0.0-10.0); HEMATOCRIT 36.7 % (37.0-47.0); HEMOGLOBIN 12.1 g/dL (12.0-16.0); LYMPH# 1.81 X1000 (1.2-3.4); LYMPH% 27.2 % (20.5-51.1); MCH 32.2 PG (27-31); MCV 97.6 FL (81-99); MONO# 0.31 X1000 (0.11-0.59); MONO% 4.7 % (1.7-9.3); MPV 9.7 FL (7.4-10.4); NEUT# 4.41 X1000 (1.4-6.5); NEUT% 66.2 % (42.2-75.2); PLT 149 X1000 (130-400); RBC 3.76 XMIL (4.2-5.4); RDW 12.9 % (11.5-14.5); WBC 6.65 X1000 (4.8-10.8)
[2018-08-25 06:49] LABS: AGAP 6; ALB/GLOB RATIO 1.4; ALBUMIN 3.6 g/dL (3.5-5.0); ALKALINE PHOSPHATASE 48 U/L (32-104); BUN 15 mg/dL (8-22); CALCIUM 8.6 mg/dL (8.8-10.2); CHLORIDE 116 mmol/L (98-107); CK TOTAL 1112 U/L (24-173); COSMO 298; CREATININE 0.9 mg/dL (0.5-0.9); ESTIMATED GFR > 60; GLUCOSE 110 mg/dL (70-104); GOT 45 U/L (10-30); GPT 38 U/L (10-36); MAGNESIUM 2.2 mg/dL (1.5-2.7); POTASSIUM 4.2 mmol/L (3.5-5.1); SODIUM 149 mmol/L (136-145); TCO2 27 mmol/L (25-35); TOTAL BILIRUBIN 0.59 mg/dL (0.20-1.00); TOTAL PROTEIN 6.1 g/dL (6.3-8.3)
[2018-08-25] MEDS: HUMALOG SUBQ SCH ×3 (07:00→15:40)
--- NOTE | 2018-08-25 09:29 | PROGRESS NOTE ---
DATE: 08/25/2018 SUBJECTIVE: This patient is doing better today, today she is tolerating p.o., her sodium is still elevated. We will continue with D5W and checking her sodium level every 4 hours. OBJECTIVE: Vital Signs: Temperature 98.4 degrees, pulse 65, respiratory rate 18, blood pressure 111/75, oxygen saturation 100% on room air. HEENT: Head normocephalic. No trauma. PERRLA. Neck: Supple. No JVD. No masses. Central trachea. Chest: Clear to auscultation. No wheezing. No rales. Abdomen: Soft. Mild tenderness to palpation at the level of the periumbilical area and epigastric area. Extremities: No edema, no clubbing, no cyanosis. Neurological: The patient is alert and oriented x3. No focal deficits. LABORATORY DATA: WBC 6.6, hemoglobin 12.1, hematocrit 36.7, platelets 149,000. Sodium 149, potassium 4.2, chloride 116, bicarbonate 27, BUN 15, creatinine 0.9, glucose 110, calcium 8.6. AST 45, ALT 38, alkaline phosphatase 48. CK level 1112. ASSESSMENT AND PLAN: 1. Intractable nausea, vomiting and abdominal pain, resolved. She is still having some abdominal pain, but she is feeling much better. She is tolerating p.o. We will continue with same management. 2. Upper gastrointestinal bleed. Upon admission, the patient was complaining of coffee-grounds emesis, upper endoscopy was performed and showed gastritis, she has been placed on proton pump inhibitors and Carafate, she is feeling better. 3. Hypernatremia. The sodium level is trending down, today is 149. Will continue with D5W and diet. 4. Rhabdomyolysis. CK level is trending down as well. We will continue to monitor and IV fluids. 5. Acute kidney injury, resolved. 6. Leukocytosis, resolved. 7. Drug abuse. This patient has been doing marijuana. She denies any other drugs. I will continue with daily cessation education. 8. Tobacco abuse. This patient has been highly advised against tobacco use. I will continue with daily cessation education as well. cc: Beto Chery MD
--- NOTE | 2018-08-25 09:32 | PROVIDER PROGRESS NOTE ---
Progress Note SUBJECTIVE: No acute overnight events. Afebrile. No N/V/F, CP, SOB, abdominal pain. Tolerating liquids. OBJECTIVE: Last Vital Signs Temp 98.8 F 08/25/18 08:00 Pulse 80 08/25/18 08:00 Resp 16 08/25/18 08:00 BP 118/96 08/25/18 08:00 Pulse Ox 100 08/25/18 08:00 Height 5 ft 6 in Weight 145 lb GEN: awake, alert, NAD HEENT: anicteric, MMM, EOMI NECK: supple, no jvd CV: RRR, no murmurs PULM: CTAB ABD: soft NT/ND, NABS EXT: no cce NEURO: nonfocal LABS: 08/25/18 08/25/18 05:32 05:32 WBC 6.65 Hgb 12.1 Plt Count 149 Sodium 149 H Potassium 4.2 Chloride 116 H Carbon Dioxide 27 BUN 15 Creatinine 0.9 Glucose 110 H Calcium 8.6 L Magnesium 2.2 Total Bilirubin 0.59 AST 45 H ALT 38 H Alkaline Phosphatase 48 Creatine Kinase 1112 H Total Protein 6.1 L Albumin 3.6 EGD 08/24/2018 FINDINGS: The esophagus was normal. Z line was regular at 38 cm from the incisors. Stomach showed diffuse moderate gastritis. Random gastric biopsies were obtained to rule out H. pylori. Retroflexion in the stomach was normal. The duodenal bulb and second portion were also normal. A/P: Marla Bolton is a 33-year-old woman with marijuana and alcohol abuse who presents with acute episode of intractable nausea, vomiting with coffee grounds, abdominal pain, found to have acute kidney injury, rhabdomyolysis, hypovolemic hyernatremia in the setting of volume depletion. UGIB resolved. Suspect related to [place] tear not seen on EGD or gastritis. Her nausea and vomiting episode is likely from cyclic vomiting syndrome from cannabinoid hyperemesis. She says she has heard of the term before as her sister has similar symptoms periodically. 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 Will sign off. Please call with questions
[2018-08-25 10:32] LABS: AGAP 8; BUN 15 mg/dL (8-22); CALCIUM 8.7 mg/dL (8.8-10.2); CHLORIDE 111 mmol/L (98-107); COSMO 289; CREATININE 0.7 mg/dL (0.5-0.9); ESTIMATED GFR > 60; GLUCOSE 118 mg/dL (70-104); POTASSIUM 4.2 mmol/L (3.5-5.1); SODIUM 144 mmol/L (136-145); TCO2 25 mmol/L (25-35)
[2018-08-25 14:47] LABS: AGAP 6; BUN 15 mg/dL (8-22); CALCIUM 8.5 mg/dL (8.8-10.2); CHLORIDE 110 mmol/L (98-107); COSMO 283; CREATININE 0.7 mg/dL (0.5-0.9); ESTIMATED GFR > 60; GLUCOSE 153 mg/dL (70-104); POTASSIUM 3.9 mmol/L (3.5-5.1); SODIUM 140 mmol/L (136-145); TCO2 24 mmol/L (25-35)
[2018-08-25] MEDS: PROTONIX IV SCH (15:11)
[2018-08-25 19:24] LABS: AGAP 6; BUN 15 mg/dL (8-22); CALCIUM 8.6 mg/dL (8.8-10.2); CHLORIDE 111 mmol/L (98-107); COSMO 291; CREATININE 0.8 mg/dL (0.5-0.9); ESTIMATED GFR > 60; GLUCOSE 88 mg/dL (70-104); POTASSIUM 4.8 mmol/L (3.5-5.1); SODIUM 146 mmol/L (136-145); TCO2 29 mmol/L (25-35)
[2018-08-25 22:55] LABS: AGAP 8; BUN 13 mg/dL (8-22); CALCIUM 8.4 mg/dL (8.8-10.2); CHLORIDE 111 mmol/L (98-107); COSMO 293; CREATININE 0.9 mg/dL (0.5-0.9); ESTIMATED GFR > 60; GLUCOSE 101 mg/dL (70-104); POTASSIUM 4.4 mmol/L (3.5-5.1); SODIUM 147 mmol/L (136-145); TCO2 28 mmol/L (25-35)
[2018-08-26 02:28] LABS: AGAP 6; BUN 12 mg/dL (8-22); CALCIUM 8.5 mg/dL (8.8-10.2); CHLORIDE 112 mmol/L (98-107); COSMO 290; CREATININE 0.8 mg/dL (0.5-0.9); ESTIMATED GFR > 60; GLUCOSE 89 mg/dL (70-104); POTASSIUM 4.4 mmol/L (3.5-5.1); SODIUM 146 mmol/L (136-145); TCO2 28 mmol/L (25-35)
[2018-08-26] MEDS: HUMALOG SUBQ SCH ×2 (04:16→06:31)
[2018-08-26] MEDS: CARAFATE LIQUID PO SCH ×3 (04:17→14:19)
[2018-08-26] MEDS: PROTONIX IV SCH (06:08)
[2018-08-26] MEDS: NORCO-7.5 PO PRN (06:54)
[2018-08-26 07:14] LABS: BASO# 0.01 X1000 (0.0-0.2); BASO% 0.2 % (0.0-0.8); EOS# 0.18 X1000 (0.0-0.7); EOS% 2.9 % (0.0-10.0); HEMATOCRIT 37.1 % (37.0-47.0); HEMOGLOBIN 12.4 g/dL (12.0-16.0); LYMPH# 1.34 X1000 (1.2-3.4); LYMPH% 21.5 % (20.5-51.1); MCHC 33.4 g/dL (33-37); MCV 95.6 FL (81-99); MONO# 0.29 X1000 (0.11-0.59); MONO% 4.7 % (1.7-9.3); MPV 9.5 FL (7.4-10.4); NEUT# 4.41 X1000 (1.4-6.5); NEUT% 70.7 % (42.2-75.2); PLT 132 X1000 (130-400); RBC 3.88 XMIL (4.2-5.4); RDW 12.2 % (11.5-14.5); WBC 6.23 X1000 (4.8-10.8)
[2018-08-26 07:46] LABS: AGAP 7; ALB/GLOB RATIO 1.3; ALBUMIN 3.5 g/dL (3.5-5.0); ALKALINE PHOSPHATASE 53 U/L (32-104); BUN 12 mg/dL (8-22); CALCIUM 8.6 mg/dL (8.8-10.2); CHLORIDE 109 mmol/L (98-107); CK TOTAL 511 U/L (24-173); COSMO 287; CREATININE 0.8 mg/dL (0.5-0.9); ESTIMATED GFR > 60; GLUCOSE 104 mg/dL (70-104); GOT 32 U/L (10-30); GPT 34 U/L (10-36); MAGNESIUM 1.8 mg/dL (1.5-2.7); POTASSIUM 4.3 mmol/L (3.5-5.1); SODIUM 144 mmol/L (136-145); TCO2 28 mmol/L (25-35); TOTAL BILIRUBIN 0.41 mg/dL (0.20-1.00); TOTAL PROTEIN 6.1 g/dL (6.3-8.3)
[2018-08-26 11:24] VITALS: BP 111/60
[2018-08-26 13:13] LABS: AGAP 9; BUN 13 mg/dL (8-22); CALCIUM 8.3 mg/dL (8.8-10.2); CHLORIDE 109 mmol/L (98-107); COSMO 283; CREATININE 0.7 mg/dL (0.5-0.9); ESTIMATED GFR > 60; GLUCOSE 92 mg/dL (70-104); POTASSIUM 4.4 mmol/L (3.5-5.1); SODIUM 142 mmol/L (136-145); TCO2 24 mmol/L (25-35)
--- NOTE | 2018-08-26 17:14 | DISCHARGE SUMMARY ---
ADMISSION DATE: 08/22/2018 DISCHARGE DATE: 08/26/2018 DISCHARGE DIAGNOSES: 1. Intractable nausea, vomiting, and abdominal pain. 2. Upper gastrointestinal bleed. 3. Hyponatremia. 4. Rhabdomyolysis, resolved. 5. Acute kidney injury, resolved. 6. Leukocytosis, resolved. 7. Drug abuse, marijuana use. 8. Tobacco abuse. PROCEDURES PERFORMED: 1. Abdomen and pelvis CT scan dated 08/22/2018, impression: Large amount of air in the urinary bladder. No urolithiasis or hydronephrosis. 2. Chest x-ray dated 08/22/2018, impression: No acute cardiopulmonary abnormality identified. 3. Renal ultrasound dated 08/22/2018, impression: No evidence of obstructive uropathy. The possibility of medical renal disease cannot be excluded. 4. Upper gastrointestinal endoscopy dated 08/24/2018, impression: Gastritis, otherwise normal. HOSPITAL COURSE: This is a 33-year-old female with a past medical history of tobacco abuse and marijuana use, presented to the emergency department at [facility] complaining of 4-5 days of abdominal pain, nausea, and vomiting. As per the patient, she denied previous history of nausea and vomiting. She was admitted on 08/22/2018. She states that she had a sudden onset 4-5 days prior to the admission but intensity and the frequency has been increasing slowly for the past days. She states that she smoked marijuana and she took [place] and Ambien, but the pain did not go away. It looks like she drinks at least 2 shots a day. Apparently, she has been having coffee-grounds emesis. CT scan of the abdomen and pelvis was performed and showed hepatic and renal cyst and also a large amount of air within the bladder, but no signs of infection. The renal ultrasound did not show any abnormality. On the other hand, the urine culture was negative. Because of the nausea, vomiting, and because she was not eating, she was found to be in acute renal failure. The creatinine was elevated at 4.9. She received IV fluids as well as nausea medication and she was transferred to [facility] to be evaluated by Gastroenterology Department. She was dehydrated upon admission and CK was elevated as well as the sodium level. Initially she received normal saline. The CK level increased and then started to decrease. The kidney function was getting better on a daily basis and then after a few days it normalized. CK level also decreased and is trending down nicely. At some point it was 3,068 and today it is 500 with normal kidney function. As per the patient, she was not drinking enough water and she was drinking sodas or lemonade. I recommended to start drinking more water and I explained to her in detail that some sodas will have sodium. I told her she needs to stop smoking and drinking as well. Today, she is completely asymptomatic. Gastroenterology Department recommended to continue with PPIs and also Carafate. I will continue PPIs twice a day for a month and then daily and Carafate 4 times a day for 6 weeks. During the endoscopy they took some biopsies, so she will follow up with Gastroenterology Department as an outpatient in 3-4 weeks for results and monitoring. Today, this patient is stable, tolerating p.o., ambulating, no symptoms. She had an endoscopy done that showed only gastritis. No signs of esophageal candidiasis or fungal infection at all, no blood. OBJECTIVE: Vital Signs: Temperature 98.3 degrees, pulse 69, respiratory rate 20, blood pressure 111/60, oxygen saturation 100% on room air. HEENT: Head normocephalic. No trauma. PERRLA. Neck: Supple. No JVD. No masses. Central trachea. Chest: Clear to auscultation. No wheezing. No rales. Abdomen: Soft. Mild discomfort to palpation at the level of the epigastric area. Extremities: No edema. No clubbing. No cyanosis. Neurological: The patient is alert and oriented x3. No focal neurological deficits. LABORATORY: WBC 6.2, hemoglobin 12.4, hematocrit 37.1, platelets 132,000. Sodium 142, potassium 4.4, chloride 109, bicarbonate 24, BUN 13, creatinine 0.7, glucose 92, calcium 8.3. DISCHARGE MEDICATIONS: 1. [place] 1 tablet p.o. b.i.d., 7.5/325 mg as needed. 2. Pantoprazole 40 mg p.o. b.i.d. for 1 month and then daily. 3. Phenergan 25 mg p.o. q.6 hours as needed. 4. Carafate 1 g p.o. 4 times a day for 6 weeks. 5. Zolpidem 1 capsule p.o. at bedtime. I told the patient that some of her medications are as needed like the pain medications zolpidem and Phenergan. I told the patient that she needs to drink plenty of fluid and be hydrated. Come back to the emergency department if she has new symptoms. Follow up with Gastroenterology Department in 3-4 weeks. TIME SPENT: Time discharging this patient and explaining all of the further management, 35 minutes. cc: Beto Chery MD
== END 2018-08-26 15:25 | disposition home or self-care (01) | DRG 378 ==
LOC: P.ED 01:31 → P.MEDSURG 07:36 → SUATTDRO 07:36 → P.MEDSURG 07:49 → P.ICU 10:35 → 3S 08-23 17:26 → 3N 08-25 16:37
PROVIDERS: ATTEND Internal Medicine
CPT/HCPCS: 71010; 71045; 74176; 76770; 80048; 80053; 80069; 80104; 80301; 80305; 80307; 80320; 81001; 81025; 82055; 82150; 82271; 82550; 82553; 82570; 82948; 83036; 83605; 83690; 83735; 84100; 84155; 84156; 84165; 84295; 84484; 85025; 85027; 85610; 85730; 87040; 87088; 87205; 88305; 88312; 93005; 96374; 99285; A9270; C9113; G0431; G0434; G0477; G0480; G6040; J1170; J1450; J2270; J2405; J2550; J3010; J3411; J7030; J7070; S0164; XXXXX